=== PATIENT | female | born 1970 | race Caucasian/White ===

== ENCOUNTER → 2017-04-23 | Outpatient (CLI) | payer MEDICAID, OTHER | LOC: FIMAGING 10:39 | DX: Z12.31 Encounter for screening mammogram for malignant neoplasm of breast (principal) ==

== ENCOUNTER → 2018-05-19 | Outpatient (CLI) | payer MEDICAID | LOC: FIMAGING 16:04 | DX: Z12.31 Encounter for screening mammogram for malignant neoplasm of breast (principal) ==